=== PATIENT | female | born 1955 | race Caucasian/White ===

== ENCOUNTER 2017-04-20 16:22 | Inpatient (IN) | payer MEDICARE, SELFPAY ==
[~2017-04-20 16:22] MED LIST: ISOVUE-370 76%-LOCM 1 ML ONE
[2017-04-20] MEDS ORDERED: Albuterol Sulfate 2.5 mg/0.5 ml Neb ONE ×3 (16:30)
[2017-04-20] MEDS ORDERED: Albuterol Sulfate 2.5 mg/3 ml Neb ONE (16:30)
[2017-04-20] MEDS ORDERED: methylPREDNISolone Sod Succ/PF 125 MG/2 ML VIAL ONE (16:49)
[2017-04-20] MEDS ORDERED: Sterile Water 10 ML ONE (16:50)
[2017-04-20 16:58] LABS: #Eosinphils 0.1 thou/uL (0.0-0.7); #Lymphocytes 0.9 thou/uL (1.20-3.40); #Monocytes 0.6 thou/uL (0.11-0.59); #Neutrophils 7.3 thou/uL (1.40-6.50); %Basophils 0.2 % (0.0-1.0); %Eosinophils 0.6 % (0.0-10.0); %Lymphocytes 10.4 % (21.0-51.0); %Monocytes 6.4 % (0.0-10.0); %Neutrophils 82.4 % (42.0-75.0); Hemoglobin 12.9 g/dL (12.0-16.0); Mean Corpuscular HGB CONC 31.9 g/dL (32.0-36.0); Mean Corpuscular Hemoglobin 31.9 pg (27.0-31.0); Mean Platelet Volume 5.6 fL (7.4-10.4); Platelet Count 366 thou/uL (130-400); RBC Distribution Width 12.9 % (11.5-14.5); Red Blood Cell (RBC) Count 4.04 mill/uL (4.20-5.40); White Blood Cell (WBC) Count 8.8 thou/uL (4.8-10.8)
[2017-04-20 17:02] LABS: Actual Bicarbonate (HCO3a) 26.6 mEq/L (22-26); Base Excess (BEa) 1.8 mEq/L (0 (+/-) 2.5); CO2 Tension 42.5 mmHg (35.0-45.0); pH, Arterial 7.42 (7.35-7.45)
[2017-04-20 17:03] LABS: Hemoglobin (Hb) 12.2 g/dL (12.0-16.0)
[2017-04-20 17:04] LABS: ALV-art Gradient 80.165 (0-20); Analyzer IN Cardio ER; Calcium, Ionized 1.2 mmol/L (1.12-1.30); Puncture Site RRA
[2017-04-20 17:11] LABS: ALT (SGPT) 16 U/L (8-55); AST (SGOT) 12 U/L (5-34); Albumin 4.4 g/dL (3.4-4.8); Alkaline Phosphatase 90 U/L (40-150); Anion Gap 12 mmol/L (10-20); BUN (Urea Nitrogen) 16 mg/dL (9.8-20.1); Bilirubin, Total Less than 0.2 mg/dL (0.2-1.2); Calc. Creatinine Clearance 0 mL/min (70-130); Calcium 9.4 mg/dL (7.8-10.44); Carbon Dioxide 30 mmol/L (23-31); Chloride 101 mmol/L (98-107); Estimated GFR-MDRD 64; Globulin 2.9 g/dL (2.4-3.5); Glucose 88 mg/dL (80-115); Magnesium 2.4 mg/dL (1.6-2.6); Potassium 4.3 mmol/L (3.5-5.1); Protein, Total 7.3 g/dL (6.0-8.3); Sodium 139 mmol/L (136-145)
[2017-04-20 17:13] LABS: CKMB 2.4 ng/mL (0-6.6); Troponin I Less than 0.010 ng/mL (< 0.028)
--- NOTE | 2017-04-20 17:35 | RAD ---
PORTABLE AP CHEST X-RAY 04/20/17 HISTORY: Dyspnea. Shortness of breath. Patient reports history of lung cancer. COMPARISON: 04/04/12. FINDINGS: A left subclavian Mediport catheter is now noted in place with tip overlying the SVC. There are mild chronic lung changes with hyperexpansion of the lungs. There is a parenchymal opacity within the righ t upper lobe with layer densities extending to the lung apex and mild pleural thickening adjacent to the area of parenchymal density. These findings may be related to patient's known neoplastic process or possibly scarring in this region. The lungs are otherwise clear. No pulmonary nodule or mass is se en. The cardiac silhouette and pulmonary vasculature are within normal limits. Vascular calcification s are seen in the thoracic aorta. No other interval change. IMPRESSION: Parenchymal opacity as well as associated linear densities in the right upper lobe. This may represen t patient's known neoplastic process versus pleural and parenchymal scarring. Lungs are otherwise zain ar. POS: [facility]
[2017-04-20] MEDS ORDERED: Fentanyl 100 MCG/2 ML VIAL ONE (18:25)
[2017-04-20 18:32] LABS: Bilirubin Negative (Negative); Blood, Urine Negative (Negative); Clarity CLEAR (Clear); Glucose, Urine (Dipstick) Negative (Negative); Leukocyte Negative (Negative); Nitrite Negative (Negative); Protein, Urine (Dipstick) Negative (Neg-Trace); Specific Gravity, Urine 1.014 (1.002-1.036); Urobilinogen 0.2 mg/dL (0.2-1.0)
--- NOTE | 2017-04-20 18:41 | CT ---
CT ANGIOGRAM OF THORAX WITH IV CONTRAST AND 3D RECONSTRUCTIONS 04/20/17 HISTORY: Shortness of breath. History of COPD and history of lung cancer. COMPARISON: None available. FINDINGS: There is a spiculated mass-like density in the right upper lobe which extends to the pleura with asso ciated pleural thickening. This spiculated mass-like density measures 2.7 cm craniocaudal x 3 cm AP x 4.5 cm transverse. This may be related to patient's known neoplastic process. Additional linear den sity is seen in the right upper lobe probably related to areas of scarring. There is mild scarring seen within the left lung apex. No additional discrete pulmonary nodule is see n. There is no pleural effusion present. There are minimal vascular calcifications in the thoracic aorta, but the thoracic aorta is normal in caliber without evidence of an aortic dissection. No filling defects are seen in the pulmonary arteri es to suggest a pulmonary embolus. A left subclavian Mediport catheter is noted in place with the tip in the SVC. There is no evidence of lymphadenopathy. Small hiatal hernia is present. The upper abdomen demonstrates a grossly normal CT appearance for arterial phase of imaging aside fro m evidence of cholelithiasis. There are calcifications in the region of the bre hepatis which could potentially be related to small calcified lymph nodes. The adrenal glands have a normal appearance. No lytic or sclerotic osseous lesions are identified. IMPRESSION: 1. Spiculated mass-like density in the right upper lobe which may represent patient's known neop lastic process. No prior studies are available for comparison. No prior studies are available for [facility]. 2. Scattered mild chronic lung changes. No additional discrete pulmonary nodule or mass is ident ified. 3. No evidence of lymphadenopathy. 4. Cholelithiasis. 5. Small hiatal hernia. 6. No CT evidence of a pulmonary embolus. The thoracic aorta is normal in caliber. POS: [facility]
[2017-04-20] MEDS ORDERED: Loratadine 10 MG TAB PO PRN (21:04)
[2017-04-20] MEDS ORDERED: Mag-Al 1200 mg/1200 mg/30 ML UDCUP PO PRN (21:04)
[2017-04-20] MEDS ORDERED: hydrALAZINE 20 MG/ML VIAL SLOW IVP PRN (21:04)
[2017-04-20] MEDS ORDERED: Benzonatate 100 MG CAP PO PRN (21:04)
[2017-04-20] MEDS ORDERED: Acetaminophen 325 MG TAB PO PRN (21:04)
[2017-04-20] MEDS ORDERED: Bisacodyl 5 MG TAB PO PRN ×2 (21:04)
[2017-04-20] MEDS ORDERED: Diabetic Tussin 200 MG/10 ML UDCUP PO PRN (21:04)
[2017-04-20] MEDS ORDERED: cloNIDine 0.1 MG TAB PO PRN (21:04)
[2017-04-20] MEDS ORDERED: Senokot 8.6 MG TAB PO PRN ×2 (21:04)
[2017-04-20] MEDS ORDERED: traMADol HCl 50 MG TAB PO PRN (21:04)
[2017-04-20] MEDS ORDERED: Ondansetron HCl/PF 4 MG/2 ML Vial IVP PRN ×2 (21:04)
[2017-04-20] MEDS ORDERED: Nitroglycerin 0.4 MG TAB (25 Tab Bottle) SL PRN (21:04)
[2017-04-20] MEDS ORDERED: Famotidine/PF 20 mg/2ml Vial SLOW IVP SCH (21:15)
[2017-04-20] MEDS: Sodium Chloride 0.9% 1,000 ML IV SCH (22:11)
[2017-04-20 22:51] VITALS: BMI 23.4
[2017-04-20] MEDS ORDERED: traZODone HCl 50 MG TAB PO SCH (23:00)
[2017-04-21 04:16] LABS: #Lymphocytes 0.7 thou/uL (1.20-3.40); #Monocytes 0.3 thou/uL (0.11-0.59); #Neutrophils 6.2 thou/uL (1.40-6.50); %Basophils 0.3 % (0.0-1.0); %Eosinophils 0.4 % (0.0-10.0); %Lymphocytes 9.7 % (21.0-51.0); %Monocytes 4.4 % (0.0-10.0); %Neutrophils 85.3 % (42.0-75.0); Mean Corpuscular HGB CONC 32.1 g/dL (32.0-36.0); Mean Corpuscular Hemoglobin 32.2 pg (27.0-31.0); Mean Platelet Volume 5.7 fL (7.4-10.4); Platelet Count 266 thou/uL (130-400); RBC Distribution Width 12.7 % (11.5-14.5); Red Blood Cell (RBC) Count 3.43 mill/uL (4.20-5.40); White Blood Cell (WBC) Count 7.2 thou/uL (4.8-10.8)
[2017-04-21 04:39] LABS: Anion Gap 10 mmol/L (10-20); BUN (Urea Nitrogen) 13 mg/dL (9.8-20.1); Calc. Creatinine Clearance 73 mL/min (70-130); Calcium 8.9 mg/dL (7.8-10.44); Carbon Dioxide 27 mmol/L (23-31); Chloride 106 mmol/L (98-107); Estimated GFR-MDRD 76; Glucose 129 mg/dL (80-115); Potassium 4.5 mmol/L (3.5-5.1); Sodium 138 mmol/L (136-145)
[2017-04-21] MEDS: Rivaroxaban 10 MG TAB PO SCH (05:00)
[2017-04-21] MEDS: Sodium Chloride 0.9% 1,000 ML IV SCH (05:02)
--- NOTE | 2017-04-21 05:54 | HP ---
DATE OF ADMISSION: 04/20/2017 PRIMARY CARE PHYSICIAN: Out of town. CHIEF COMPLAINT: Shortness of breath. HISTORY OF PRESENT ILLNESS: This is a very pleasant 61-year-old female with past medical h istory of lung cancer status post chemotherapy and radiation, undergoing preventative chemotherapy in [place]: Presented to the emergency room with the above-mentioned complaints. History is mainly o btained by the patient herself. Case has been discussed with the admitting ER physician. According to Emily Lauren, she has been on chemotherapy by oncologist in [place]. She has finished ra diation therapy for her lung cancer 2 years ago. She has finished the treatment with chemotherapy ab out 1 year ago and for the last year, she is on preventative chemotherapy every 2 weeks. According t o her oncologist in [place], she was told that the tumor is growing and chemotherapy is not working, so she sought a second opinion at [facility] recently. She saw oncologist at [facility] few weeks ago. She was found to be significantly short of breath and was admitted at the hospital there for 2 or 3 days. Her scans over there reportedly showed no worsening of her lung mass and actually some s hrinkage. Over there, she was treated for COPD exacerbation and was just discharged 2 or 3 days ago on oral steroids. She was also given azithromycin, which she has finished actually just this morning . She reports that her symptoms have worsened up to the same point, where she was prior to her admissio n at [facility] last week. She is significantly hypoxic despite using her nebulizers, steroids, i nhalers, and Spiriva at home. She can barely move a few feet and has to stop because of . She reports that she has been on home oxygen for the last year or so. She has been feeling well up u ntil about a month and half ago, but all of her symptoms have started to appear and worsened for the last month. She has a history of influenza, but one year ago. She was not tested for influenza duri ng her recent hospitalization and [facility]. She denies any fever or chills. She does have a coug h for the last month which is not going away. Other than that, she denies any other recent illnesses . She denies any weakness. She denies any nausea, vomiting, abdominal pain or diarrhea. She denies any dysuria, frequency or urgency. In the emergency room upon presentation, she was found to be significantly tachypneic with respiratio ns in the 40s. Her oxygen saturation was in the low 90s on room air. Because of respiratory distres s, she was started on BiPAP and was given steroids as well as nebulizers with significant improvement in her symptoms. She had some complaints of pleuritic chest pain and for this reason, she underwent a CT angio of the thorax. It was negative for pulmonary embolism, but shows spiculated mass in the right upper lobe with associated pleural thickening. The mass measures 2.7 x 3 x 4.5 cm. The toan barrera's family has brought the outside CDs of the imaging studies done recently. The patient is now being admitted to [facility] on BiPAP with a presumptive diagnosis of acute COPD exacerb ation with known history of lung cancer. PAST MEDICAL HISTORY: 1. Right upper lobe lung cancer on a preventative chemotherapy and status post radiation. 2. COPD. 3. History of seizure disorder. PAST SURGICAL HISTORY: 1. MediPort in the left subclavian artery. 2. Facial surgery for blowout fracture of left occipital region. 3. section. PSYCHIATRIC HISTORY: Anxiety and depression. SOCIAL HISTORY: She lives in [place], but is planning to move closer to the family locally. She dinh s history of tobacco abuse includes smoking in 09/2013. No history of drug or alcohol abuse. FAMILY HISTORY: Significant for malignant hyperthermia. ALLERGIES: PHENERGAN and REGLAN. CURRENT MEDICATIONS: As listed in the ER records Albuterol inhalers as needed, lansoprazole 30 mg da fabiano, prednisone 40 mg daily in a tapering dose; Brovana nebulizer b.i.d., budesonide nebulizer b.i.d. , cholecalciferol daily, citalopram 20 mg daily, DuoNeb as needed, phenytoin 300 mg in the morning, S piriva daily, trazodone 200 mg daily at bedtime, and Xarelto 20 mg a day. REVIEW OF SYSTEMS: The patient has improvement in her respiratory distress, but is still having diff iculty taking deep breaths and is easily getting winded otherwise negative except for those mentioned in the history and physical. The following complete review of systems was negative, unless otherwise mentioned in the HPI or below : Constitutional: Weight loss or gain, ability to conduct usual activities. Skin: Rash, itching. Eyes: Double vision, pain. ENT/Mouth: Nose bleeding, neck stiffness, pain, tenderness. Cardiovascular: Palpitations, dyspnea on exertion, orthopnea. Respiratory: Shortness of breath, wheezing, cough, hemoptysis, fever or night sweats. Gastrointestinal: Poor appetite, abdominal pain, heartburn, nausea, vomiting, constipation, or diarr hea. Genitourinary: Urgency, frequency, dysuria, nocturia. Musculoskeletal: Pain, swelling. Neurologic/Psychiatric: Anxiety, depression. Allergy/Immunologic: Skin rash, bleeding tendency. LABORATORY DATA: Her CBC shows a WBC of 8.8 with 82% neutrophils, hemoglobin 12.9, platelet count of 366. ABG shows pH of 7.42, pCO2 of 42, pO2 of 102 on BiPAP. Serum chemistries unremarkable. Liver enzymes within normal limits. Cardiac enzymes normal. BNP normal. Urinalysis unremarkable. Chest x-ray by my review has no evidence to suggest pleural effusion, edema or infiltrate. CT angio was n egative for pulmonary embolism, but shows right upper lobe lung spiculated mass as per HPI. PHYSICAL EXAMINATION: VITAL SIGNS: Most recent vital signs include blood pressure 105/68, pulse 99, respirations 17, satur ating 100% on BiPAP. GENERAL: In no acute distress, able to talk in sentences with mask. She is actually very talkative, but gets easily winded. Awake, alert, oriented x3, mild respiratory distress. HEENT: Mucous membrane appears moist though she has the BiPAP mask on. Pupils are equal, reactive t o light and accommodation. Extraocular movements intact. Head is normocephalic, atraumatic. NECK: Supple without any lymphadenopathy, JVD or bruit. CHEST: Clear to auscultation with some decreased breath sounds in the right upper lobe area in gener al. There are no wheezes, rales or rhonchi. HEART: Rate and rhythm is regular without any murmur, rubs or gallops. ABDOMEN: Somewhat distended, nontender. No hepatosplenomegaly. Active bowel sounds heard. EXTREMITIES: Free of any cyanosis, clubbing, or edema. NEUROLOGIC: Nonfocal. SKIN: Free of any rashes or bruises. Feels warm and dry to touch. PSYCHIATRIC: Somewhat anxious appearing. IMPRESSION AND PLAN: 1. Acute respiratory distress. This is likely secondary to chronic obstructive pulmonary disease ex acerbation in the setting of known lung cancer. The patient does not seem to have any evidence of pn eumonia, pleural effusion, pulmonary edema or pulmonary embolism. We will rule out cardiac causes by obtaining a transthoracic echocardiogram, though she does not appear to be in fluid overload. We wi ll rule out cardiomyopathy due to chemotherapy, etc. Meanwhile, she will be continued on BiPAP and w ill be admitted to [facility] and we will consult Pulmonary Medicine in the morning. She has plans to go b ack to Pulmonary Medicine at [facility] along with oncologist as a followup. At this time, she will be treated with IV steroids and nebulizer scheduled on an as needed basis. We will also add long-ac ting inhaled steroids and continue her Spiriva for now. We will avoid the use of antibiotics as she just finished azithromycin this morning. I have discussed the code status with her. Initially, she said that she does not want to be reintubated because she has been told that she would never come off of the ventilator, but quickly she changed the status and wants to be intubated if it needs to be. 2. Acute chronic obstructive pulmonary disease exacerbation as per #1. 3. History of lung cancer. The patient is encouraged to continue to follow up with [facility]. At this time, we will continue her Xarelto, which seems to be for prophylaxis due to the lung cancer. 4. History of tobacco abuse. 5. Code status: FULL CODE. Discussed with the patient. 6. Add deep venous thrombosis and gastrointestinal prophylaxis. DISPOSITION: Ms. Aguilar is currently being admitted for acute respiratory distress, likely secondary to acute chronic obstructive pulmonary disease exacerbation with known reduced lung capacity due to lung cancer. Estimated length of stay is at least 2-3 midnight. Prognosis is guarded at this time. Further management will depend upon her clinical course.
[2017-04-21] MEDS ORDERED: Mometasone/Formoterol 120 PUFF INHALER INH SCH (06:30)
[2017-04-21] MEDS ORDERED: Spiriva 18 MCG CAP (Box of 5 Caps) INH SCH (07:00)
[2017-04-21] MEDS: Lorazepam 1 MG TAB PO PRN ×2 (08:34→22:41)
[2017-04-21] MEDS: Citalopram 20 MG TAB PO SCH (08:34)
[2017-04-21] MEDS ORDERED: Famotidine/PF 20 mg/2ml Vial SLOW IVP SCH (09:00)
[2017-04-21] MEDS ORDERED: Enoxaparin Sodium 40 MG/0.4 ML SYRINGE SC SCH (09:00)
[2017-04-21] MEDS ORDERED: Albuterol Sulfate 2.5 mg/3 ml Neb NEB PRN (12:52)
--- NOTE | 2017-04-21 13:54 | PDOC.PN ---
- Subjective Encounter Start Date: 04/21/17 Encounter Start Time: 13:52 Subjective: feels much better.off of Bipap now and breathing so much better - Objective Resuscitation Status: Resuscitation Status FULL:Full Resuscitation MAR Reviewed: Yes Vital Signs & Weight: Vital Signs (12 hours) Temp Pulse Resp BP Pulse Ox 04/21/17 11:56 94 18 100 04/21/17 11:52 98.8 F 100 20 92/76 98 04/21/17 08:00 98.7 F 100 26 H 98 04/21/17 07:51 98.7 F 100 26 H 122/72 98 04/21/17 06:14 86 20 110/71 100 04/21/17 05:17 92 20 100 04/21/17 04:23 97.8 F 95 18 106/68 100 04/21/17 02:10 75 18 96/57 L 100 Weight Weight 132 lb 5 oz I&O: 04/20/17 04/21/17 04/22/17 06:59 06:59 06:59 Intake Total 1800 Output Total 1700 500 Balance 100 -500 Result Diagrams: 04/21/17 03:32 04/21/17 03:32 Additional Labs: Microbiology 04/21/17 05:10 Nasopharyngeal swab Respiratory Virus Panel (PCR) ([facility]) - Final 04/20/17 18:10 Urine clean catch Urine Culture - Preliminary NO GROWTH AT 24 HOURS 04/20/17 16:35 Venous blood - Left Hand Blood Culture - Preliminary Specimen has been received and culture in progress. No Growth to date. 04/20/17 16:34 Venous blood - Right Arm Blood Culture - Preliminary Specimen has been received and culture in progress. No Growth to date. Phys Exam - Physical Examination Constitutional: NAD HEENT: PERRLA, moist MMs, sclera anicteric, TM's clear, oral pharynx no lesions , 2+ tonsils Neck: no nodes, no JVD, supple, full ROM Respiratory: no wheezing, no rales, no rhonchi, clear to auscultation bilateral Cardiovascular: RRR, no significant murmur Gastrointestinal: soft, non-tender, no distention, positive bowel sounds Musculoskeletal: no edema, pulses present Neurological: non-focal, normal sensation, moves all 4 limbs Psychiatric: normal affect, A&O x 3 Skin: no rash Dx/Plan (1) Acute respiratory failure Code(s): J96.00 - ACUTE RESPIRATORY FAILURE, UNSP W HYPOXIA OR HYPERCAPNIA Status: Acute Qualifiers: Respiratory failure complication: hypoxia Qualified Code(s): J96.01 - Acute respiratory failure with hypoxia (2) COPD with acute exacerbation Code(s): J44.1 - CHRONIC OBSTRUCTIVE PULMONARY DISEASE W (ACUTE) EXACERBATION Status: Suspected (3) Mucus plugging of bronchi Code(s): J98.09 - OTHER DISEASES OF BRONCHUS, NOT ELSEWHERE CLASSIFIED Status : Suspected Comment: resolved w Bipap (4) Lung cancer Code(s): C34.90 - MALIGNANT NEOPLASM OF UNSP PART OF UNSP BRONCHUS OR LUNG Status: Chronic Comment: on Preventative ChemoRx (5) Chronic anticoagulation Code(s): Z79.01 - CREDIT ASSISTANT (CURRENT) USE OF ANTICOAGULANTS Status: Chronic - Plan PT/OT, respiratory therapy, incentive spirometry, out of bed/ambulate, DVT proph w/SCDs Clinically better. on O2 PNC.PCCM following -: cont mucinex.Po steroids. no need for ABx, NAAT negative -: likley home in 24-48 hours w OP f/u at [facility] -: ECHO pending though no S/S of CHF. -: mucinex Po BID.avoid all antitussives * . Review of Systems - Review of Systems Constitutional: negative: fever, chills, sweats, weakness, malaise, other Respiratory: SOB with Excertion. negative: Cough, Dry, Shortness of Breath, Hemoptysis, Pleuritic Pain, Sputum, Wheezing Cardiovascular: negative: chest pain, palpitations, orthopnea, paroxysmal nocturnal dyspnea, edema, light headedness, other Gastrointestinal: negative: Nausea, Vomiting, Abdominal Pain, Diarrhea, Constipation, Melena, Hematochezia, Other Genitourinary: negative: Dysuria, Frequency, Incontinence, Hematuria, Retention , Other Musculoskeletal: negative: Neck Pain, Shoulder Pain, Arm Pain, Back Pain, Hand Pain, Leg Pain, Foot Pain, Other Neurological: negative: Weakness, Numbness, Incoordination, Change in Speech, Confusion, Seizures, Other - Medications/Allergies Allergies/Adverse Reactions: Allergies Allergy/AdvReac Type Severity Reaction Status Date / Time metoclopramide [From Reglan] Allergy Verified 04/20/17 22:04 promethazine [From Phenergan] Allergy Verified 04/20/17 22:04 Medications: Current Medications Acetaminophen (Tylenol) 650 mg PO Q4H PRN PRN Reason: Headache/Fever or Pain Hydrocodone Bitart/Acetaminophen ([place] 5/325) 1 tab PO Q4H PRN PRN Reason: Moderate Pain (4-6) Al Hydroxide/Mg Hydroxide (Maalox) 30 ml PO Q6H PRN PRN Reason: Heartburn or Indigestion Albuterol Sulfate (Ventolin) 2.5 mg NEB [id number] PRN PRN Reason: Wheezing Albuterol/Ipratropium (Duoneb) 3 ml NEB [id number] [facility] Last Admin: 04/21/17 11:56 Dose: 3 ml Bisacodyl (Dulcolax) 10 mg PO DAILYPRN PRN PRN Reason: Constipation Citalopram Hydrobromide (Celexa) 20 mg PO DAILY [facility] Last Admin: 04/21/17 08:34 Dose: 20 mg Clonidine (Catapres) 0.1 mg PO Q4H PRN PRN Reason: Systolic BP > 160 Guaifenesin (Mucinex) 1,200 mg PO Q12HR [facility] Hydralazine HCl (Apresoline) 10 mg SLOW IVP Q4H PRN PRN Reason: Systolic BP > 180 Loratadine (Claritin) 10 mg PO DAILYPRN PRN PRN Reason: Sinus Symptoms Lorazepam (Ativan) 1 mg PO Q4H PRN PRN Reason: Anxiety/Agitation Last Admin: 04/21/17 08:34 Dose: 1 mg Nitroglycerin (Nitrostat) 0.4 mg SL Q5MIN PRN PRN Reason: Chest Pain Ondansetron HCl (Zofran) 4 mg IVP Q6H PRN PRN Reason: Nausea/Vomiting Phenytoin Sodium (Dilantin Er) [facility] Last Admin: 04/21/17 08:34 Dose: 300 mg Prednisone (Prednisone) 40 mg PO QAM[facility] Stop: 04/27/17 08:01 Rivaroxaban (Xarelto) 20 mg PO 0600 [facility] Last Admin: 04/21/17 05:00 Dose: 20 mg Senna (Senokot) 2 tab PO HSPRN PRN PRN Reason: Constipation Sodium Chloride (Flush - Normal Saline) 10 ml IVF Q12HR [facility] Last Admin: 04/21/17 08:35 Dose: 10 ml Sodium Chloride (Flush - Normal Saline) 10 ml IVF PRN PRN PRN Reason: Saline Flush Tramadol HCl (Ultram) 50 mg PO Q4H PRN PRN Reason: Moderate Pain (4-6)
--- NOTE | 2017-04-21 15:02 | CON ---
DATE OF CONSULTATION: 04/21/2017 SERVICE: Pulmonary Medicine. REASON FOR CONSULTATION: Respiratory failure. HISTORY OF PRESENT ILLNESS: The patient is a 61-year-old white female with past medical history significant for adenocarcinoma in the right upper lobe. She was in a surgical candidate, so she underwent chemoradiation therapy. She is on chronic chemotherapy at this point, having complete radiation 2 years ago , and chemotherapy one year ago. She is on Opdivo on a scheduled basis. Her last dose was in March. In her usual state of health, she had increasing respiratory distress. She was seeking a second opinion at [facility] at that time. The news that she got from [facility] was actually reassuring suggesting that the lesion was getting smaller and that she still was responding to her chronic medications. While she was there, she ended up having respiratory distress and had increasing sputum production. She was put on azithromycin for brief course, nebulize medications, and steroids. Ultimately, she was discharged from their facilities 3 days ago. She was visiting some family in this area. She continued to feel worse as far as breathing goes. As such, she presented to the Emergency Department. Overnight , she was placed on BiPAP. She felt that it open something up inside of her chest then she is breathing much more comfortably today. She denies any current fevers, chills, nausea, or vomiting. There were no recent sick contacts. PAST MEDICAL HISTORY:: 1. Adenocarcinoma of the right upper lobe, status post chemoradiation therapy. 2. Chronic obstructive pulmonary disease. 3. Seizure disorder. PAST SURGICAL HISTORY: 1. MediPort placement in left subclavian vein. 2. Facial surgery of the left occipital region. 3. section. SOCIAL HISTORY: She is currently living in [place]. She has got multiple family members in this area and grew up in this area. She has a [id number] history of smoking, but quit in 09/2013. She denies any alcohol or illicit drug use. She has no exposure to chemicals, dust, asbestos, or tuberculosis. FAMILY HISTORY: Noncontributory. ALLERGIES: PHENERGAN, REGLAN. MEDICATIONS: List of her inpatient medications were reviewed. Multiple small updates were made. REVIEW OF SYSTEMS: General, head, ears, eyes, nose, throat, cardiovascular, respiratory, GI, , musculoskeletal, neurologic, and skin is negative except as mentioned in the HPI. PHYSICAL EXAMINATION: VITAL SIGNS: Afebrile, pulse 100, blood pressure 92/76, respirations 20, and saturation 98% on 2 liters nasal cannula. GENERAL: The patient is awake, alert, in no apparent distress. LUNGS: Decent air entry. There is prolonged expiratory phase and rhonchi appreciated. Polyphonic wheezes also there with forced exhalation. No crackles. HEART: Normal rate, regular. ABDOMEN: Soft, nontender, nondistended, bowel sounds positive. MUSCULOSKELETAL: No cyanosis or clubbing. No pitting in the bilateral lower extremities. NEUROLOGIC: Grossly nonfocal. LABORATORY DATA: WBC 7.2, hemoglobin 11.0, platelets 266,000. PH 7.42, pCO2 of 42, pO2 of 102. Basic metabolic profile, liver function studies, cardiac enzyme, BNP, and lactate were all unremarkable. Urinalysis is negative. Respiratory virus panel is negative. Blood cultures are negative x2. IMAGING: CT of the chest demonstrates no acute cardiopulmonary abnormality. There is biapical scarring. There is right upper lobe nodule, which is spiculated. She has no significant mediastinal lymphadenopathy. There is no pulmonary embolism. ASSESSMENT: 1. Acute on chronic hypoxic respiratory failure. 2. Chronic obstructive pulmonary disease with acute exacerbation. 3. Adenocarcinoma of the right upper lobe, status post chemoradiation therapy, currently on suppressive therapy. PLAN: We will discontinue the BiPAP as she has not required this thing over the past 18 hours. Steroids will be de-escalated to 40 mg daily. I will add Mucinex scheduled to help break up some of her secretions. We will avoid any cough suppressants as this is likely were got her into trouble in the first place. I will initiated her on a 5-day course of Levaquin. IV fluids will be interrupted and will give her one dose of Lasix today and consider a second dose tomorrow. At this point, she has no further requirements to remain in the IMCU. As such, we will transition her to the medical unit. 70 minutes have been devoted to this patient in various activities. I personally reviewed all imaging studies and laboratory data noted within this document. For at least half of this time, I was interacting with the patient at the bedside or coordinating care with the care team. For the remainder of the time I was immediately available to the patient in the hospital unit. OLIVER
[2017-04-21] MEDS: HYDROcodone/Acetaminophen 5/325 mg Tablet PO PRN (15:50)
[2017-04-21] MEDS: guaiFENesin ER 600 MG TAB PO SCH (20:22)
[2017-04-22 05:05] LABS: Hemoglobin 11.8 g/dL (12.0-16.0)
[2017-04-22 05:26] LABS: Anion Gap 11 mmol/L (10-20); BUN (Urea Nitrogen) 15 mg/dL (9.8-20.1); Calc. Creatinine Clearance 70 mL/min (70-130); Calcium 9.3 mg/dL (7.8-10.44); Carbon Dioxide 29 mmol/L (23-31); Chloride 103 mmol/L (98-107); Estimated GFR-MDRD 73; Glucose 89 mg/dL (80-115); Potassium 3.7 mmol/L (3.5-5.1); Sodium 139 mmol/L (136-145)
[2017-04-22] MEDS: Rivaroxaban 10 MG TAB PO SCH (06:31)
[2017-04-22] MEDS: guaiFENesin ER 600 MG TAB PO SCH ×2 (08:09→20:27)
[2017-04-22] MEDS: Citalopram 20 MG TAB PO SCH (08:10)
[2017-04-22] MEDS: predniSONE 20 MG TAB PO SCH (08:10)
[2017-04-22] MEDS: Lorazepam 1 MG TAB PO PRN (10:39)
[2017-04-22] MEDS: HYDROcodone/Acetaminophen 5/325 mg Tablet PO PRN (10:39)
[2017-04-22] MEDS: Cyclobenzaprine 10 MG TAB PO PRN (11:18)
--- NOTE | 2017-04-22 13:27 | PRG ---
DATE OF SERVICE: 04/22/2017 SERVICE: Pulmonary Medicine. INTERVAL HISTORY: The patient feels like she is doing much better. She denies any current fevers, c hills, nausea, vomiting or chest discomfort. Otherwise, there has been no interval change to her con dition. She is coughing a little bit less. In addition of that, she is finding it easier for her to clear secretions. As such, she started to feel a lot better. She walked in the hallways today with out significant difficulty. She does not quite feel ready to go home yet. That being said, she is m oving in the right direction. She is quite anxious. OBJECTIVE: VITAL SIGNS: Afebrile, pulse 86, blood pressure 106/73, respirations 20, saturation 99% on room air. GENERAL: The patient is awake and alert, in no apparent distress. LUNGS: Decent air entry. There is a prolonged expiratory phase, which is mild. That being said, no wheezing is appreciated today. Minimal rhonchi are present, but clear with cough today. HEART: Normal rate, regular. ABDOMEN: Soft, nontender, nondistended. Bowel sounds are positive. MUSCULOSKELETAL: No cyanosis or clubbing. There is no pitting in the bilateral lower extremities. NEUROLOGIC: Grossly nonfocal. LABORATORY DATA: Hemoglobin 11.8. Basic metabolic profile is completely unremarkable. Potassium 3. 7. Respiratory virus panel is negative. Blood cultures x2 are unremarkable as is the urine culture. ASSESSMENT: 1. Acute on chronic hypoxic respiratory failure. 2. Chronic obstructive pulmonary disease with acute exacerbation. 3. Adenocarcinoma of the right upper lobe, status post chemoradiation therapy, currently on suppress enio therapy. PLAN: The patient can complete a 5-day course of steroids, 5-day course of antibiotics. She will us e Mucinex in the outpatient setting and will attempt to avoid any cough suppressants when she leaves the hospital. She is on anxiolytics. I have told her to discuss anxiety disorder problems with her primary care physician to be considered for initiation on long-acting therapy with an SSRI. I would like for her to minimize her benzodiazepine use as this also will suppress her cough. That being yohana d, she will continue to need this for a period of time for her panic attacks. If she is doing well b y tomorrow morning, she can be considered for transition home.
--- NOTE | 2017-04-22 13:55 | PDOC.PN ---
- Subjective Encounter Start Date: 04/22/17 Encounter Start Time: 13:53 Subjective: c/o severe back spasms on and off but doing better overall -: breathing back to baseline almost - Objective Resuscitation Status: Resuscitation Status FULL:Full Resuscitation MAR Reviewed: Yes Vital Signs & Weight: Vital Signs (12 hours) Temp Pulse Resp BP Pulse Ox 04/22/17 07:56 97.6 F 86 20 106/73 99 04/22/17 07:19 98 04/22/17 07:17 91 16 98 04/22/17 04:43 94 L 04/22/17 04:00 97.8 F 81 20 105/74 95 Weight Weight 132 lb 5 oz I&O: 04/21/17 04/22/17 04/23/17 06:59 06:59 06:59 Intake Total 1800 1050 Output Total 1700 500 Balance 100 550 Result Diagrams: 04/22/17 04:43 04/22/17 04:43 Additional Labs: Microbiology 04/21/17 05:10 Nasopharyngeal swab Respiratory Virus Panel (PCR) ([facility]) - Final 04/20/17 18:10 Urine clean catch Urine Culture - Final 04/20/17 16:35 Venous blood - Left Hand Blood Culture - Preliminary NO GROWTH AT 48 HOURS 04/20/17 16:34 Venous blood - Right Arm Blood Culture - Preliminary NO GROWTH AT 48 HOURS Radiology Reviewed by me: Yes Phys Exam - Physical Examination Constitutional: NAD anxious appearing HEENT: PERRLA, moist MMs, sclera anicteric, oral pharynx no lesions Neck: no nodes, no JVD, supple, full ROM Respiratory: no wheezing, no rales, clear to auscultation bilateral rhonchi Cardiovascular: RRR, no significant murmur Gastrointestinal: soft, non-tender, no distention, positive bowel sounds Musculoskeletal: no edema, pulses present Neurological: non-focal, normal sensation, moves all 4 limbs Psychiatric: A&O x 3 Skin: no rash Dx/Plan (1) COPD with acute exacerbation Code(s): J44.1 - CHRONIC OBSTRUCTIVE PULMONARY DISEASE W (ACUTE) EXACERBATION Status: Suspected (2) Mucus plugging of bronchi Code(s): J98.09 - OTHER DISEASES OF BRONCHUS, NOT ELSEWHERE CLASSIFIED Status : Suspected Comment: resolved w Bipap (3) Lung cancer Code(s): C34.90 - MALIGNANT NEOPLASM OF UNSP PART OF UNSP BRONCHUS OR LUNG Status: Chronic Comment: on Preventative ChemoRx (4) Chronic anticoagulation Code(s): Z79.01 - RESIDENT ASSOCIATE (CURRENT) USE OF ANTICOAGULANTS Status: Chronic Comment: h/o PE (5) Acute respiratory failure Code(s): J96.00 - ACUTE RESPIRATORY FAILURE, UNSP W HYPOXIA OR HYPERCAPNIA Status: Resolved Qualifiers: Respiratory failure complication: hypoxia Qualified Code(s): J96.01 - Acute respiratory failure with hypoxia - Plan continue antibiotics, PT/OT, respiratory therapy, incentive spirometry, out of bed/ambulate, DVT proph w/SCDs add prn flexeril. -: wean off O2.may need home O2 -: pt wishes to seek local care for Lung CA.will refer to oncology as an OP -: hemodynamically stable.cont steroids,nebs ,supportive care -: appreciate PCCM input.Home when ok w Pulmonary * . Review of Systems - Review of Systems Constitutional: negative: fever, chills, sweats, weakness, malaise, other ENT: negative: Ear Pain, Ear Discharge, Nose Pain, Nose Discharge, Nose Congestion, Mouth Pain, Mouth Swelling, Throat Pain, Throat Swelling, Other Respiratory: Cough, SOB with Excertion. negative: Dry, Shortness of Breath, Hemoptysis, Pleuritic Pain, Sputum, Wheezing Cardiovascular: negative: chest pain, palpitations, orthopnea, paroxysmal nocturnal dyspnea, edema, light headedness, other Gastrointestinal: negative: Nausea, Vomiting, Abdominal Pain, Diarrhea, Constipation, Melena, Hematochezia, Other Genitourinary: negative: Dysuria, Frequency, Incontinence, Hematuria, Retention , Other Musculoskeletal: Back Pain. negative: Neck Pain, Shoulder Pain, Arm Pain, Hand Pain, Leg Pain, Foot Pain, Other Neurological: negative: Weakness, Numbness, Incoordination, Change in Speech, Confusion, Seizures, Other - Medications/Allergies Allergies/Adverse Reactions: Allergies Allergy/AdvReac Type Severity Reaction Status Date / Time metoclopramide [From Reglan] Allergy Verified 04/20/17 22:04 promethazine [From Phenergan] Allergy Verified 04/20/17 22:04 Medications: Current Medications Acetaminophen (Tylenol) 650 mg PO Q4H PRN PRN Reason: Headache/Fever or Pain Hydrocodone Bitart/Acetaminophen ([place] 5/325) 1 tab PO Q4H PRN PRN Reason: Moderate Pain (4-6) Last Admin: 04/22/17 10:39 Dose: 1 tab Al Hydroxide/Mg Hydroxide (Maalox) 30 ml PO Q6H PRN PRN Reason: Heartburn or Indigestion Albuterol Sulfate (Ventolin) 2.5 mg NEB [id number] PRN PRN Reason: Wheezing Albuterol/Ipratropium (Duoneb) 3 ml NEB [id number] COUNT INCLUDES THE [facility] Last Admin: 04/22/17 07:17 Dose: 3 ml Bisacodyl (Dulcolax) 10 mg PO DAILYPRN PRN PRN Reason: Constipation Citalopram Hydrobromide (Celexa) 20 mg PO DAILY COUNT INCLUDES THE [facility] Last Admin: 04/22/17 08:10 Dose: 20 mg Clonidine (Catapres) 0.1 mg PO Q4H PRN PRN Reason: Systolic BP > 160 Cyclobenzaprine HCl (Flexeril) 10 mg PO TID PRN PRN Reason: Muscle Spasm Last Admin: 04/22/17 11:18 Dose: 10 mg Guaifenesin (Mucinex) 1,200 mg PO Q12HR COUNT INCLUDES THE [facility] Last Admin: 04/22/17 08:09 Dose: 1,200 mg Hydralazine HCl (Apresoline) 10 mg SLOW IVP Q4H PRN PRN Reason: Systolic BP > 180 Loratadine (Claritin) 10 mg PO DAILYPRN PRN PRN Reason: Sinus Symptoms Lorazepam (Ativan) 1 mg PO Q4H PRN PRN Reason: Anxiety/Agitation Last Admin: 04/22/17 10:39 Dose: 1 mg Nitroglycerin (Nitrostat) 0.4 mg SL Q5MIN PRN PRN Reason: Chest Pain Ondansetron HCl (Zofran) 4 mg IVP Q6H PRN PRN Reason: Nausea/Vomiting Phenytoin Sodium (Dilantin Er) 300 mg PO [facility] Last Admin: 04/22/17 11:18 Dose: 300 mg Prednisone (Prednisone) 40 mg PO [facility] Stop: 04/27/17 08:01 Last Admin: 04/22/17 08:10 Dose: 40 mg Rivaroxaban (Xarelto) 20 mg PO 0600 COUNT INCLUDES THE [facility] Last Admin: 04/22/17 06:31 Dose: 20 mg Senna (Senokot) 2 tab PO HSPRN PRN PRN Reason: Constipation Sodium Chloride (Flush - Normal Saline) 10 ml IVF Q12HR COUNT INCLUDES THE [facility] Last Admin: 04/22/17 08:10 Dose: 10 ml Sodium Chloride (Flush - Normal Saline) 10 ml IVF PRN PRN PRN Reason: Saline Flush Tramadol HCl (Ultram) 50 mg PO Q4H PRN PRN Reason: Moderate Pain (4-6)
[2017-04-22] MEDS ORDERED: traZODone HCl 50 MG TAB PO SCH (21:00)
[2017-04-23] MEDS: Rivaroxaban 10 MG TAB PO SCH (06:14)
[2017-04-23 07:48] VITALS: TEMP 97.9
[2017-04-23] MEDS: Citalopram 20 MG TAB PO SCH (09:08)
[2017-04-23] MEDS: predniSONE 20 MG TAB PO SCH (09:08)
[2017-04-23] MEDS: guaiFENesin ER 600 MG TAB PO SCH (09:08)
[2017-04-23] MEDS: Cyclobenzaprine 10 MG TAB PO PRN (11:35)
--- NOTE | 2017-04-23 12:29 | PRG ---
DATE OF SERVICE: 04/23/2017 SERVICE: Pulmonary Medicine. INTERVAL HISTORY: The patient is doing great from a respiratory standpoint. She denies any current shortness of breath or chest discomfort. She is breathing little worse this morning than she was las t night, but she understands that each morning she typically feels a little bit worse than the aftern oon. She thinks that she is still moving in the right direction. I tend to agree with her. Her oxy gen became little dislodged overnight. She woke up with a little bit of difficulty with breathing, b ut it is resolved at this point. She was able to go and get some coffee once again today. She has b een more walking with physical therapy and is using her pursed lip breathing in order to get around s till. PHYSICAL EXAMINATION: VITAL SIGNS: Afebrile, pulse 80, blood pressure 111/74, respirations 16, saturation 97% on room air. GENERAL: Patient is awake and alert, in no apparent distress. LUNGS: Decent air entry compared to presentation. She still has reduced air entry; however. There is a prolonged expiratory phase with polyphonic wheezing, which is much improved. No rhonchi or crac kles are appreciated. HEART: Normal rate, regular. ABDOMEN: Soft, nontender, nondistended. Bowel sounds are positive. MUSCULOSKELETAL: No cyanosis or clubbing. There is no pitting in the bilateral lower extremities. NEUROLOGIC: Grossly nonfocal. ASSESSMENT: 1. Acute on chronic hypoxic respiratory failure. 2. Chronic obstructive pulmonary disease with acute exacerbation. 3. Adenocarcinoma of the right upper lobe, status post chemoradiation therapy, currently on suppress enio therapy. PLAN: The patient can complete 5 days of steroids, and 5 days of antibiotics. She will continue Muc inex in the outpatient setting and avoid any cough suppressants moving forward. At this point, I do think that she has gotten into a place where she is likely stable for transition home. She needs no specific followup with me in [facility], but I have counseled her to follow up with her oncologist as previ ously directed, and with her primary diecast machine operator in [place] shortly after returning there. One of the things that she will discuss with that person is transitioning off of the egg Spiriva to the Spi alberto Respimat, which I think she should have an easier time using.
--- NOTE | 2017-04-23 12:58 | DIS ---
DATE OF ADMISSION: 04/20/2017 DATE OF DISCHARGE: 02/21/2018 CONDITION AT THE TIME OF DISCHARGE: Stable and improved. PRIMARY CARE PHYSICIAN: Out of town. Patient lives in [place]. DISCHARGE DIAGNOSES: 1. Acute respiratory failure with hypoxia. 2. Acute chronic obstructive pulmonary disease exacerbation. 3. History of lung cancer on preventative chemotherapy. 4. History of pulmonary embolism on chronic anticoagulation. 5. History of tobacco abuse. 6. Mucous plugging of the bronchus. DISCHARGE MEDICATIONS: Resume home medications as follows, Spiriva 18 mcg daily, Xarelto 20 mg daily , Celexa 20 mg daily, vitamin D3 daily, Xanax 1 tablet p.o. t.i.d. p.r.n., lansoprazole 30 mg daily, trazodone 200 mg at bedtime, Medrol Dosepak tapering dose, and Phenytoin 100 mg p.o. t.i.d. NEW MEDICATIONS: Mucinex 1200 mg p.o. b.i.d., DuoNebs as needed every 4 hours, and Flexeril 10 mg p. o. t.i.d. p.r.n. CONSULTATIONS: In house include Pulmonary Medicine, Dr. Zafar. PROCEDURES DURING THE HOSPITAL: Include CT angio of the thorax shows spiculated mass like density in the right upper lobe consistent with a known neoplasm that the patient has. Otherwise, chronic lung changes and cholelithiasis. The re was no pulmonary embolism. The mass measures 2.7 cm x 3 cm x 4.5 cm. HISTORY OF PRESENTING ILLNESS: Ms. Aguilar is a 61-year-old pleasant female with known history of diann g cancer, undergoing a preventative chemotherapy in [place] as well as history of tobacco abuse and COPD, who presented to the emergency room with complaints of worsening shortness of breath. She was recently admitted at [facility], where she is following up for her cancer treatment with the same sy mptoms and was treated with antibiotics and steroids and was discharged. She had some improvement in her symptoms, but then they worsened and she presented to our emergency room as she was traveling to be with her family in [place], [place]. Upon presentation, she was hypoxic and tachypneic and was initially started on BiPAP and was admitted to [facility]. She received nebulizers and steroids in the ER. Please see admission history and physical for further details dictated by myself. HOSPITAL COURSE: The patient underwent a CT angio, which did not reveal any pulmonary embolism. She was continued on nebs, steroids, and oxygen as needed basis and Pulmonary Medicine was consulted. T he patient's symptoms improved rather quickly with the BiPAP and she was weaned off of it and was on nasal cannula. Dr. Zafar saw the patient for the pulmonary team. She was transitioned out of the IMCU to medical floor and had gradual improvement in her symptoms and was almost at her baseline. Juhi perkins uses 2 liters of oxygen at home, which was continued. She was encouraged to continue to follow wit h her oncologist and top lift cutter at [facility]. She has an upcoming appointment next week. Dr. Virginia virk instructed her not to suppress her cough because it seems like that she had mucus plugging of the bronchus, which was pushed out by the BiPAP therapy. She was given Mucinex and was given acapell a device, which was prescribed by [facility] as well. Other than that, the patient had no active issues. She did have some back spasms, for which Flexeril as needed was added. She was seen and examined prior to discharge. PHYSICAL EXAMINATION: Include, VITAL SIGNS: Temperature 97.9, pulse of 88, saturating 97% on 2 liters, respirations 16, and blood p ressure 111/74. GENERAL: In no acute distress, awake, alert, oriented x3. CHEST: Showed some faint wheezes bilaterally without any rhonchi or rales. Rate and rhythm is regul ar. NEUROLOGIC: Nonfocal. LABORATORY EXAMINATION: Hemoglobin 11.8, hematocrit 36.8. Serum chemistry is unremarkable. Cardiac enzymes normal. BNP normal. She is instructed to keep her followup appointments and she verbalized understanding. Total time spent in the discharge of this patient 32 minutes including [id number] interaction.
[2017-04-23 13:49] VITALS: BP 120/71
--- NOTE | 2017-05-15 21:26 | EKG ---
Test Reason : SOB Blood Pressure : / mmHG Vent. Rate : 101 BPM Atrial Rate : 101 BPM P-R Int : 122 ms QRS Dur : 068 ms QT Int : 372 ms P-R-T Axes : 086 070 095 degrees QTc Int : 482 ms Sinus tachycardia Low voltage QRS Nonspecific T wave abnormality Abnormal ECG Confirmed by RICHARD You, ROMA ([id number]), newspaper photo editor ANDRA MONTAGUE ([id number]) on 05/15/2017 9:26:01 PM Referred By: Confirmed By:ROMA RAMOS M.D.
== END 2017-04-23 13:46 | disposition home or self-care (01) | DRG 189 ==
LOC: ERS 16:22 → IMCU/EMU 19:22 → T4-A 04-21 16:40
PROVIDERS: ADMIT Internal Medicine; ATTEND Internal Medicine
PROC: 5A09357 Assistance with Respiratory Ventilation, Less than 24 Consecutive Hours, Continuous Positive Airway Pressure (ICD-10-PCS; principal; 2017-04-20)
DX: J96.21 Acute and chronic respiratory failure with hypoxia (principal); J44.1 Chronic obstructive pulmonary disease with (acute) exacerbation; R64 Cachexia; Z99.81 Dependence on supplemental oxygen; C34.11 Malignant neoplasm of upper lobe, right bronchus or lung; J98.09 Other diseases of bronchus, not elsewhere classified; M62.830 Muscle spasm of back; Z86.711 Personal history of pulmonary embolism; Z79.01 Long term (current) use of anticoagulants; Z87.891 Personal history of nicotine dependence; G40.909 Epilepsy, unspecified, not intractable, without status epilepticus; Z68.23 Body mass index [BMI] 23.0-23.9, adult; F41.9 Anxiety disorder, unspecified
CPT/HCPCS: 36415; 71045; 71275; 80048; 80053; 81003; 82553; 82805; 83605; 83735; 83880; 84484; 85014; 85018; 85025; 87040; 87086; 87633; 93005; 93306; 94640; 94660; 96361; 96374; 96375; A4216; J2930; J3010; J7506; J7611; J7620